=== PATIENT | male | born 1970 | race Caucasian/White ===

== ENCOUNTER → 2018-08-20 | Outpatient (CLI) | payer OTHER ==
[2018-08-20 12:57] LABS: Basophils % (A) 1 %; Eosinophils # (A) 0.1 k/uL (0-0.7); Eosinophils % (A) 2 %; HCT 50.4 % (39.0-53.0); HGB 16.4 gm/dL (13.0-17.5); Lymphocytes # (A) 2.2 k/uL (1.0-4.8); Lymphocytes % (A) 26 %; MCHC 32.6 g/dL (31.0-37.0); Mean Platelet Volume 6.2; Monocytes # (A) 0.4 k/uL (0-1.0); Monocytes % (A) 5 %; Neutrophils # (A) 5.6 k/uL (1.3-7.7); Neutrophils % (A) 65 %; Platelet Count 370 k/uL (150-450); RBC 5.47 m/uL (4.30-5.90); RDW 13.9 % (11.5-15.5); WBC 8.6 k/uL (3.8-10.6)
[2018-08-20 15:09] LABS: Erythrocyte Sedimentation Rate 2 mm/hr (0-15)
[2018-08-20 20:05] LABS: ALT 43 U/L (10-49); AST 28 U/L (14-35); Albumin/Globulin Ratio 2.58 (1.60-3.17); Alkaline Phosphatase 55 U/L (41-126); C Reactive Protein <0.4 mg/dL (0.0-0.8); Calcium 10.3 mg/dL (8.7-10.3); Chloride 108 mmol/L (96-109); Globulin 1.9 g/dL (1.6-3.3); Glucose 96 mg/dL (70-110); Potassium 5.5 mmol/L (3.5-5.5); Sodium 143 mmol/L (135-145); Total Bilirubin 0.5 mg/dL (0.3-1.2); Total Protein 6.8 g/dL (6.2-8.2); Uric Acid 6.9 mg/dL (3.7-8.7)
[2018-08-20 22:08] LABS: Rheumatoid Factor 154 IU/mL (0-15)
[2018-08-21 10:56] LABS: HLA B27 NEGATIVE
== END ==
LOC: LABWHC1 12:21
PROVIDERS: ATTEND Family Medicine
DX: M25.539 Pain in unspecified wrist (principal); R60.9 Edema, unspecified; R59.0 Localized enlarged lymph nodes
CPT/HCPCS: 36415; 80053; 84550; 85025; 85652; 86038; 86140; 86200; 86431; 86812

== ENCOUNTER → 2018-09-01 | Outpatient (CLI) | payer OTHER ==
--- NOTE | 2018-09-01 17:37 | US ---
EXAMINATION TYPE: US st tissue neck DATE OF EXAM: 09/01/2018 COMPARISON: NONE CLINICAL HISTORY: 48-year-old male R59.0 ENLARGED LYMPH NODES. Supraclavicular lymphadenopathy; local ized enlarged lymph nodes palpable x 6 weeks. No symptoms for infection; no fever. Technique: Scanned right and left supraclavicular areas of concern. FINDINGS: Hypoechoic area seen right supraclavicular region measurin.6 x 0.6 x 0.4 cm. Hypoechoic area with echogenic center seen left supraclavicular region measurin.7 x 0.5 x 0.4 cm. IMPRESSION: Some prominent but nonenlarged supraclavicular lymph nodes are suggested measuring up to 6 mm on the right and 5 mm on the left. Contrast enhanced CT soft tissue neck can be performed if there are palpa ble areas that persist despite conservative management or if suspicious clinical features are present .
== END | disposition home or self-care (01) ==
LOC: RADUSWWP 16:02
PROVIDERS: ATTEND Family Medicine
DX: R59.0 Localized enlarged lymph nodes (principal)
CPT/HCPCS: 76536

== ENCOUNTER 2018-09-18 09:12 | Day surgery (SDC) | payer OTHER ==
[2018-09-16 10:48] VITALS: BMI 27.1
[~2018-09-18 09:12] MED LIST: LACTATED RINGERS 1,000 ML IV SCH
[2018-09-18 09:54] VITALS: TEMP 98.3
[2018-09-18] MEDS ORDERED: LIDOCAINE 1% 20 ML VIAL (10MG/ML) FOR IV START INTRADERMA ONE (10:00)
[2018-09-18] MEDS ORDERED: PROPOFOL 10 MG/ML 20 ML VIAL IV ONE (10:11)
--- NOTE | 2018-09-18 10:36 | P.PCN ---
Date of Procedure: 09/18/18 Procedure(s) Performed: Brief history: Patient is a pleasant 48-year-old white male scheduled for an elective upper endoscopy as well as colonoscopy as a part of evaluation of a sensitive GERD/intermittent dysphagia to solids and change in bowel habits for the last few months duration. Procedure performed: Esophagogastroduodenoscopy with biopsy Colonoscopy Preoperative diagnosis: GERD/intermittent dysphagia to solids Change in bowel habits Anesthesia: MAC Procedure: After informed consent was obtained from the patient was brought into the endoscopy unit and IV sedation was administered by anesthesia under continuous monitoring. Initially upper endoscopy was done. The Olympus GF 160 video end oscope was inserted inserted into the mouth and esophagus intubated without any difficulty and was gradually advanced into the stomach and duodenum and carefully examined. The bulb and second part of the duodenum appeared normal. The scope was then withdrawn into the stomach adequately insufflated with air and upon careful examination the antrum had mild gastritis and biopsies were done from this area. The body, cardia and fundus appeared normal. The scope was then withdrawn into the esophagus. The GE junction was located at 40 cm to the incisors. Mall sliding Hiatal hernia noted. It appeared regular with no erythema erosions or ulcerations. Rest of the esophagus appeared normal. Patient tolerated the procedure well. At this time the patient continued to remain sedation. Initial digital rectal examination was normal. Olympus CF 160 video colonoscope was then inserted into the rectum and gradually advanced to the cecum without any difficulty. Careful examination was performed as the scope was gradually being withdrawn. The prep was excellent. The cecum, ascending colon, transverse colon, descending colon, sigmoid colon and rectum appeared normal. Retroflexion was performed in the rectum and no lesions were noted. Patient tolerated the procedure well. Impression: 1. Upper endoscopy revealed mild antral gastritis and small sliding-type hiatal hernia 2. Colonoscopy was essentially within normal limits with no evidence of colitis or colorectal neoplasia Recommendations: Findings of this examination were discussed with the patient as well as his family. He was advised to follow with the biopsy results. He'll continue with Prilosec 20 mg daily and follow antireflux measures. He can have a repeat screening colonoscopy in 10 years
[2018-09-18] MEDS ORDERED: LACTATED RINGERS 1,000 ML IV ONE (10:42)
[2018-09-18] MEDS ORDERED: IV FLUID CONTINUATION 1,000 ML IV ONE (10:42)
[2018-09-18 10:44] VITALS: RESP 18
[2018-09-18 10:59] VITALS: BP 125/78; PULSE 78
== END 2018-09-18 11:35 | disposition home or self-care (01) ==
LOC: ORWHC2ENDO 09:12
PROVIDERS: ATTEND Internal Medicine Gastroenterology
DX: K21.0 Gastro-esophageal reflux disease with esophagitis (principal); K29.50 Unspecified chronic gastritis without bleeding; K44.9 Diaphragmatic hernia without obstruction or gangrene; R19.4 Change in bowel habit
CPT/HCPCS: 88305; 45378; 43239; J2704

== ENCOUNTER → 2021-01-16 | Outpatient (CLI) | payer BC ==
--- NOTE | 2021-01-17 04:06 | MR ---
EXAMINATION TYPE: MR knee RT wo con DATE OF EXAM: 01/16/2021 COMPARISON: None HISTORY: Rt knee pain Multiplanar multiecho imaging of the right knee without contrast. Anterior and posterior cruciate ligaments are intact. There is a mild knee joint effusion. The collat eral ligaments are intact. There is mild increased signal within the substance of the posterior horn medial meniscus without extension to the articular surface. The lateral meniscus appears intact. Beatty lla is intact. The joint spaces are fairly normal. I see no bony destructive process. There is no lopez dence of a fracture. IMPRESSION: There is small knee joint effusion. There is intrasubstance horizontal tear of the posterior horn med ial meniscus. No evidence of ligamentous tear.
== END | disposition home or self-care (01) ==
LOC: RADMRIMAIN 12:17
PROVIDERS: ATTEND Orthopaedic Surgery
DX: M23.321 Other meniscus derangements, posterior horn of medial meniscus, right knee (principal); M25.461 Effusion, right knee

== ENCOUNTER → 2021-05-18 | Outpatient (CLI) | payer BC ==
[2021-05-19 01:17] LABS: Anion Gap 12.9 mmol/L (10.00-18.00); Carbon Dioxide 20.7 mmol/L (20.0-27.5); Potassium 4.2 mmol/L (3.5-5.5)
[2021-05-19 01:43] LABS: Basophils # (A) 0.03 X 10*3/uL (0.00-0.10); Basophils % (A) 0.3 %; Eosinophils # (A) 0.11 X 10*3/uL (0.04-0.35); Eosinophils % (A) 1.1 %; HCT 47.1 % (39.6-50.0); HGB 15.8 g/dL (13.0-17.0); Lymphocytes # (A) 1.93 X 10*3/uL (0.90-5.00); Lymphocytes % (A) 19.2 %; MCH 31.4 pg (27.0-32.0); MCHC 33.5 g/dL (32.0-37.0); MCV 93.6 fL (80.0-97.0); Mean Platelet Volume 9.7 fL (9.5-12.2); Monocytes # (A) 0.73 X 10*3/uL (0.20-1.00); Monocytes % (A) 7.3 %; Neutrophils # (A) 7.22 X 10*3/uL (1.80-7.70); Neutrophils % (A) 71.9 %; Platelet Count 353 X 10*3/uL (140-440); RBC 5.03 X 10*6/uL (4.40-5.60); RDW 13.2 % (11.5-14.5); WBC 10.04 X 10*3/uL (4.50-10.00)
== END | disposition home or self-care (01) ==
LOC: LABPAT 14:07
PROVIDERS: ATTEND Orthopaedic Surgery
DX: Z01.812 Encounter for preprocedural laboratory examination (principal); M23.91 Unspecified internal derangement of right knee
CPT/HCPCS: 36415; 80051; 85025

== ENCOUNTER 2021-05-24 08:48 | Day surgery (SDC) | payer BC ==
[2021-05-18 12:18] VITALS: BMI 30.1
--- NOTE | 2021-05-23 13:33 | HP ---
HISTORY AND PHYSICAL DATE OF SURGERY: 05/24/2021 Channing Pineda is a 51-year-old patient seen with progressive right knee pain. We discussed options for treatment. He elected to proceed with arthroscopy. Consent was obtained. PAST MEDICAL HISTORY: Hypertension, gastroesophageal reflux disease. PAST SURGICAL HISTORY: Knee arthroscopy, cervical spine surgery, lumbar spine surgery. DAILY MEDICATIONS: Atorvastatin, losartan, omeprazole. ALLERGIES: NONE. SOCIAL HISTORY: He smokes cigarettes. PHYSICAL EVALUATION OF RIGHT KNEE: Range of motion is zero to 125. Mild effusion. Tenderness, medial joint line. Positive medial Gina's. Ligaments stable. Hip rotation without pain. Distal neurovascular exam intact. Right knee MRI revealed medial meniscal tear and effusion. IMPRESSION: 1. Internal derangement of right knee with medial meniscal tear. 2. Hypertension. 3. Hyperlipidemia. 4. Gastroesophageal reflux disease. PLAN: Right knee arthroscopy with partial meniscectomy and debridement. MMODL / IJN: [id number] /
[~2021-05-24 08:48] MED LIST changes: +DEXAMETHASONE SOD PHOSPHATE 4 MG/ML 1 ML VIAL IV ONE; +HYDROmorphone 0.5 MG/0.5 ML SYRINGE IVP PRN; +MIDAZOLAM 2 MG/2 ML VIAL IV PRN; +ONDANSETRON 4 MG/2 ML VIAL IVP ONE; +SCOPOLAMINE 1.5MG/72HR PATCH TRANSDERM ONE
[2021-05-24] MEDS ORDERED: LIDOCAINE 1% (10MG/ML) FOR IV START INTRADERMA ONE (09:45)
[2021-05-24] MEDS ORDERED: LIDOCAINE 1% INJ 10MG/ML (20 ML MDV) ONE (11:20)
[2021-05-24] MEDS ORDERED: SUCCINYLCHOLINE CHLORIDE 100 MG/5 ML SYR IV ONE (11:20)
[2021-05-24] MEDS ORDERED: PROPOFOL 10 MG/ML 20 ML VIAL IV ONE (11:20)
[2021-05-24] MEDS ORDERED: fentaNYL (PF) 50 MCG/ML 2 ML AMP ONE (11:20)
[2021-05-24] MEDS ORDERED: MIDAZOLAM 2 MG/2 ML VIAL ONE (11:20)
[2021-05-24] MEDS ORDERED: BUPIVACAINE (PF) 0.25% 30 ML VIAL INTRAARTIC ONE (11:25)
--- NOTE | 2021-05-24 12:13 | P.OP ---
Date of Procedure: 05/24/21 Preoperative Diagnosis: Internal derangement right knee Postoperative Diagnosis: 1. Tear medial meniscus right knee 2. Reactive synovitis medial, lateral and suprapatellar compartments right knee Procedure(s) Performed: 1. Arthroscopic partial medial meniscectomy right knee 2. Arthroscopic partial synovectomy medial, lateral and suprapatellar compartments right Anesthesia: USMAN, local Surgeon: Fidel Henning Estimated Blood Loss (ml): 7 Pathology: none sent Condition: stable Disposition: PACU Indications for Procedure: 51-year-old patient seen with progressive right knee pain. After having treatment options discussed, he elected to proceed with arthroscopy. Operative Findings: See description of procedure Description of Procedure: Patient was taken to the operative suite. Patient underwent a general anesthet ic by the department of anesthesia. Patient was given preoperative antibiotics. The right lower extremity was placed in a well-padded arthroscopic leg hernández. The right leg was prepped and draped in the normal sterile orthopedic fashion. A lateral parapatellar and suprapatellar incision was made. Trochars were inserted. Arthroscopy was initiated. Suprapatellar pouch revealed diffuse thick reactive synovitis. The patellofemoral joint appeared to articulate congruently. There was grade 1 chondromalacia of the patella with no osteochondral tears present. The scope was guided into the medial gutter. No loose bodies or plica were identified. The scope was then guided into the medial compartment. A medial parapatellar incision was made. Trocar inserted followed by probe. There was a tear involving the posterior horn medial meniscus. There were mild grade 1 chondromalacia changes of the tibial plateau. There was some thick reactive synovitis anteriorly. I performed a partial meniscectomy getting down to stable meniscal tissue. I performed a partial synovectomy decompressing the thick reactive synovitis anteriorly. The residual meniscus was probed and found to be stable. There was good decompression of the synovitis. Scope and probe were then guided into the intercondylar notch. Cruciates were identified, probed and found to be stable. The scope and probe were then guided into lateral compartment. Lateral meniscus was probed and found to be stable. There was no significant chondromalacia present. There was some thick reactive synovitis anteriorly. I introduced a motorized shaver and performed a partial synovectomy. Shaver was removed. There was good decompression of the synovitis. The scope was in guided back into the suprapatellar compartment. I introduced a motorized shaver into the super patellar compartment. I performed a partial synovectomy. The shaver was removed. There was good decompression reactive synovitis. I took one more look around the entire knee, no residual debris. Instruments were now removed from the joint. The joint was infiltrated with .25% Marcaine. Steri-Strips were applied to the portal sites. Sterile dressings were applied. The patient was placed into a JARRELL hose. No tourniquet was utilized. The patient was awakened, transferred to a bed and taken to recovery stable satisfactory condition.
[2021-05-24 12:16] VITALS: RESP 16; TEMP 97.7
[2021-05-24] MEDS ORDERED: LACTATED RINGERS 1,000 ML IV ONE (12:36)
[2021-05-24 13:24] VITALS: BP 118/74; PULSE 81
[2021-05-24] MEDS ORDERED: HYDROcodone/APAP 7.5-325MG 1 EACH TAB ONE (13:25)
== END 2021-05-24 13:44 | disposition home or self-care (01) ==
LOC: OR 08:48
PROVIDERS: ATTEND Orthopaedic Surgery
DX: S83.241A Other tear of medial meniscus, current injury, right knee, initial encounter (principal); I10 Essential (primary) hypertension; K21.9 Gastro-esophageal reflux disease without esophagitis; F17.210 Nicotine dependence, cigarettes, uncomplicated; E78.5 Hyperlipidemia, unspecified
CPT/HCPCS: 29881; J2250; J1100; J0690; J2405; J2001; J3010; J0330; J2704

== ENCOUNTER → 2021-07-03 | Outpatient (CLI) | payer BC ==
--- NOTE | 2021-07-03 13:54 | EST ---
EXERCISE STRESS AGE: 51 SEX: M HT: 5'10" WT: 210 lbs. PROTOCOL: Aleks STAGE: 4 DURATION OF EXERCISE: 11:03 HEART RATE REST: 56 BLOOD PRESSURE REST: 139/87 MAXIMUM HEART RATE ACHIEVED: 146 MAXIMUM BLOOD PRESSURE: 193/78 85% MPHR: 145 100% MPHR: 170 METS: 12.1 INDICATIONS: Chest pain CLINICAL INFORMATION: Baseline EKG revealed normal sinus rhythm without significant ST-T changes. Patient walked for 11 minutes 3 seconds, achieved a maximal heart rate of 146 beats per minute, which is 85% of predicted maximal. He developed fatigue and shortness of breath but did not have any angina or arrhythmia. EKG did not reveal any ST-segment changes to indicate ischemia. There was a lot of baseline artifact. By EKG criteria, this is a negative stress test with excellent exercise capacity. There was no angina or arrhythmia. MMJASON / MILYN: [id number] /
== END | disposition home or self-care (01) ==
LOC: RADNMMAIN 08:33
PROVIDERS: ATTEND Family Medicine
DX: R07.89 Other chest pain (principal)
CPT/HCPCS: 93017